=== PATIENT | female | born 1970 | race Caucasian/White ===

== ENCOUNTER 2018-11-22 16:38 | Emergency (ER) | payer SELFPAY ==
[2018-11-22 16:45] VITALS: BP 133/102
[2018-11-22] MEDS ORDERED: KETOROLAC 60 MG/2 ML VIAL IM ONE (16:50)
--- NOTE | 2018-11-22 16:52 | ER Report ---
History and Physical Time Seen By MD: 16:49 (JASSON MCDANIELS MD) HPI/ROS CHIEF COMPLAINT: Chronic low back pain swelling of her feet HISTORY OF PRESENT ILLNESS: 48 normal morbidly obese female traveling across country comes emergency Department today with complaint of swelling of both of her feet. 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 So they've been living in her car driving across country to [place] where they have associated cyst housing waiting for them a job. Patient states that she's had acute on chronic back discomfort she's had a long history of chronic herniated disc since and sitting in the truck longtime her back was got worse she denies any chest pain shortness of breath nausea vomiting diarrhea fever chills she is a smoker does have a nonproductive cough. Patient has no additiona l complaints REVIEW OF SYSTEMS: Respiratory: cough, no dyspnea. Cardiovascular: No chest pain, no palpitations. Gastrointestinal: No vomiting, no abdominal pain. Musculoskeletal: Swelling bilateral lower extremity chronic back pain Remainder of the 14 system rev: Yes (JASSON MCDANIELS MD) Home Meds Reported Medications Aspirin (ASPIR 81) 81 Mg Tablet.dr, 81 MG PO QDAY, TAB 11/22/18 Albuterol Sulfate 0.083% (ALBUTEROL SULFATE 0.083%) 2.5 Mg/3 Ml Vial.neb, 2.5 MG INH, INH 11/22/18 Fluticasone/Salmeterol (ADVAIR 100-50 DISKUS) 1 Each Disk.w.dev, 1 EACH IH 11/22/18 Reviewed Nurses Notes: Yes Old Medical Records Reviewed: Yes (JASSON MCDANIELS MD) Constitutional Vital Sign - Last 24 Hours 11/22/18 11/22/18 11/22/18 16:45 17:00 17:30 Pulse 87 87 86 Resp 20 B/P (MAP) 133/102 Pulse Ox 93 90 94 O2 Delivery Room Air (DANY CR MD) Physical Exam General Appearance: The patient is alert, has no immediate need for airway protection and no current signs of toxicity. [ ] Eyes: Pupils equal and round no injection. Respiratory: Chest is non tender, lungs are clear to auscultation. Cardiac: regular rate and rhythm [ ] Gastrointestinal: Abdomen is soft and non tender, no masses, bowel sounds normal. Musculoskeletal: Bilateral load extremity examination does show +1 to +2 pitting edema bilaterally right somewhat greater than left aeromask intact otherwise unremarkable Neck is supple and non tender. Extremities have full range of motion and are non tender. Skin: No rashes or lesions. [ ] DIFFERENTIAL DIAGNOSIS: After history and physical exam differential diagnosis was considered for DVT edema from morbid obesity daily chronic back pain (JASSON MCDANIELS MD) Medical Decision Making Data Points Result Diagram: 11/22/18 1658 11/22/18 1658 Laboratory Hematology Test 11/22/18 16:58 Red Blood Count 4.50 M/uL (4.17-5.56) Mean Corpuscular Volume 87.9 fL (80.0-96.0) Mean Corpuscular Hemoglobin 30.0 pg (26.0-33.0) Mean Corpuscular Hemoglobin Concent 34.2 g/dL (32.0-36.0) Red Cell Distribution Width 15.1 % (11.5-14.5) Mean Platelet Volume 8.5 fL (7.2-11.1) Neutrophils (%) (Auto) 69.2 % (39.4-72.5) Lymphocytes (%) (Auto) 19.5 % (17.6-49.6) Monocytes (%) (Auto) 7.1 % (4.1-12.4) Eosinophils (%) (Auto) 3.6 % (0.4-6.7) Basophils (%) (Auto) 0.6 % (0.3-1.4) Nucleated RBC Relative Count (auto) 0.1 /100WBC Neutrophils # (Auto) 7.7 K/uL (2.0-7.4) Lymphocytes # (Auto) 2.2 K/uL (1.3-3.6) Monocytes # (Auto) 0.8 K/uL (0.3-1.0) Eosinophils # (Auto) 0.4 K/uL (0.0-0.5) Basophils # (Auto) 0.1 K/uL (0.0-0.1) Nucleated RBC Absolute Count (auto) 0.01 K/uL Prothrombin Time 12.8 seconds (12.0-14.4) Prothromb Time International Ratio 0.96 Activated Partial Thromboplast Time 27 seconds (23-35) Sodium Level 141 mmol/L (137-145) Potassium Level 3.8 mmol/L (3.5-5.0) Chloride Level 105 mmol/L (98-107) Carbon Dioxide Level 30 mmol/L (22-31) Blood Urea Nitrogen 10 mg/dl (7-18) Creatinine 1.00 mg/dl (0.52-1.04) Glomerular Filtration Rate Calc 59.4 Random Glucose 95 mg/dl (75-110) Calcium Level 8.7 mg/dl (8.4-10.2) Total Bilirubin 0.4 mg/dl (0.2-1.3) Aspartate Amino Transf (AST/SGOT) 14 U/L (0-35) Alanine Aminotransferase (ALT/SGPT) 34 U/L (0-56) Alkaline Phosphatase 104 U/L (0-126) Total Protein 7.2 g/dl (6.3-8.2) Albumin 3.6 g/dl (3.5-5.0) Chemistry Test 11/22/18 16:58 White Blood Count 11.1 k/uL (4.5-11.0) Red Blood Count 4.50 M/uL (4.17-5.56) Hemoglobin 13.5 g/dL (12.0-16.0) Hematocrit 39.6 % (34.0-47.0) Mean Corpuscular Volume 87.9 fL (80.0-96.0) Mean Corpuscular Hemoglobin 30.0 pg (26.0-33.0) Mean Corpuscular Hemoglobin Concent 34.2 g/dL (32.0-36.0) Red Cell Distribution Width 15.1 % (11.5-14.5) Platelet Count 320 K/uL (150-450) Mean Platelet Volume 8.5 fL (7.2-11.1) Neutrophils (%) (Auto) 69.2 % (39.4-72.5) Lymphocytes (%) (Auto) 19.5 % (17.6-49.6) Monocytes (%) (Auto) 7.1 % (4.1-12.4) Eosinophils (%) (Auto) 3.6 % (0.4-6.7) Basophils (%) (Auto) 0.6 % (0.3-1.4) Nucleated RBC Relative Count (auto) 0.1 /100WBC Neutrophils # (Auto) 7.7 K/uL (2.0-7.4) Lymphocytes # (Auto) 2.2 K/uL (1.3-3.6) Monocytes # (Auto) 0.8 K/uL (0.3-1.0) Eosinophils # (Auto) 0.4 K/uL (0.0-0.5) Basophils # (Auto) 0.1 K/uL (0.0-0.1) Nucleated RBC Absolute Count (auto) 0.01 K/uL Prothrombin Time 12.8 seconds (12.0-14.4) Prothromb Time International Ratio 0.96 Activated Partial Thromboplast Time 27 seconds (23-35) Glomerular Filtration Rate Calc 59.4 Calcium Level 8.7 mg/dl (8.4-10.2) Total Bilirubin 0.4 mg/dl (0.2-1.3) Aspartate Amino Transf (AST/SGOT) 14 U/L (0-35) Alanine Aminotransferase (ALT/SGPT) 34 U/L (0-56) Alkaline Phosphatase 104 U/L (0-126) Total Protein 7.2 g/dl (6.3-8.2) Albumin 3.6 g/dl (3.5-5.0) Coagulation Test 11/22/18 16:58 Prothrombin Time 12.8 seconds Prothromb Time International Ratio 0.96 Activated Partial Thromboplast Time 27 seconds ([facility]) EKG/Imaging Imaging Examination: CHEST PA LAT Comparison: None. History: Cough. Findings: Cardiac and hilar contour size is normal. No consolidation, nodule, or peribronchial inflammation. No pneumothorax, edema, or effusion. Osseous structures are intact. IMPRESSION: No findings of acute cardiopulmonary disease. Report Dictated By: Sachin Rose MD at 11/22/2018 5:59 PM Bilateral lower extremity venous Doppler duplex ultrasound scan. HISTORY: Lower extremity edema. COMPARISON: None. A color flow Doppler duplex ultrasound examination with spectral analysis was performed on both lower extremities. The common femoral veins, superficial femoral veins, and popliteal veins are normal. These vessels compress and augment normally. The upper portions of the trifurcation veins are unremarkable. Portions of the deep veins of the calves are obscured. No intraluminal filling defects are identified to suggest acute thrombus in the deep venous system. Edema is present in the soft tissues of both lower extremities. A venous reflux study was not performed at this time. Note that Doppler ultrasound is somewhat insensitive below the knees. IMPRESSION: Bilateral lower extremity soft tissue edema. Otherwise negative for acute deep vein thrombosis. Report Dictated By: Ranjeet Kong MD at 11/22/2018 5:55 PM (DANY CR MD) ED Course/Re-evaluation ED Course Venous ultrasound negative. Chest x-ray negative. Decision to Disposition Date: Nov 22, 2018 Decision to Disposition Time: 18:30 (DANY CR MD) Depart Departure Latest Vital Signs Vital Signs Date Time Temp Pulse Resp B/P (MAP) Pulse Ox O2 Delivery O2 Flow Rate FiO2 11/22/18 17:30 86 94 11/22/18 16:45 20 133/102 Room Air (DANY CR MD) Impression: Primary Impression: Edema Condition: Improved Disposition: HOME OR SELF-CARE Patient Instructions: Edema,Peripheral Additional Instructions: No blood clots noted on evaluation today. Follow-up with primary care. Problem Qualifiers Primary Impression: Edema Edema type: unspecified Qualified Codes: R60.9 - Edema, unspecified JASSON MCDANIELS MD Nov 22, 2018 16:52 DANY CR MD Nov 22, 2018 18:16
[2018-11-22] MEDS ORDERED: ASPI-1471 PO (16:53)
[2018-11-22] MEDS ORDERED: ALBU2.5V36 INH (16:53)
[2018-11-22] MEDS ORDERED: FLUT1DIS27 IH (16:53)
[2018-11-22 17:13] LABS: PLATELET COUNT, AUTOMATED 320 K/uL (150-450)
[2018-11-22 17:15] LABS: INR 0.96
--- NOTE | 2018-11-22 18:01 | RADIOLOGY IMAGING REPORT ---
[place] [facility] [place] NAME: Rabia Dickey : 1970 MR: [id number] V: [id number] EXAM DATE: ORDERING PHYSICIAN: JASSON MCDANIELS TECHNOLOGIST: Location: [facility] [place] Patient: Rabia Dickey : 1970 Visit/Account:[id number] Date of Sevice: 11/22/2018 Bilateral lower extremity venous Doppler duplex ultrasound scan. HISTORY: Lower extremity edema. COMPARISON: None. A color flow Doppler duplex ultrasound examination with spectral analysis was performed on both lower extremities. The common femoral veins, superficial femoral veins, and popliteal veins are normal. Th cassie vessels compress and augment normally. The upper portions of the trifurcation veins are unremarka ble. Portions of the deep veins of the calves are obscured. No intraluminal filling defects are ident ified to suggest acute thrombus in the deep venous system. Edema is present in the soft tissues of both lower extremities. A venous reflux study was not performed at this time. Note that Doppler ultrasound is somewhat insensitive below the knees. IMPRESSION: Bilateral lower extremity soft tissue edema. Otherwise negative for acute deep vein thrombosis. Report Dictated By: Ranjeet Kong MD at 11/22/2018 5:55 PM Report E-Signed By: Ranjeet Kong MD at 11/22/2018 5:56 PM WSN:[id number]
--- NOTE | 2018-11-22 18:04 | RADIOLOGY IMAGING REPORT ---
[place] [facility] [place] Rabia Dic[place] : 1970 MR: [id number] V: [id number] EXAM DATE: ORDERING PHYSICIAN: JASSON MCDANIELS TECHNOLOGIST: Location: [facility] Patient: Rabia Dickey : 1970 Visit/Account:[id number] Date of Sevice: 11/22/2018 Examination: CHEST PA LAT Comparison: None. History: Cough. Findings: Cardiac and hilar contour size is normal. No consolidation, nodule, or peribronchial inflam mation. No pneumothorax, edema, or effusion. Osseous structures are intact. IMPRESSION: No findings of acute cardiopulmonary disease. Report Dictated By: Sachin Rose MD at 11/22/2018 5:59 PM Report E-Signed By: Sachin Rose MD at 11/22/2018 6:00 PM WSN:[id number]
== END 2018-11-22 18:21 | disposition home or self-care (01) ==
LOC: ER 16:38
DX: R60.0 Localized edema (principal)
CPT/HCPCS: 71046; 85025; 85610; 85730; 93970; 96372; 99284; J1885; 82040; 82247; 82310; 82374; 82435; 82565; 82947; 84075; 84132; 84155; 84295; 84450; 84460; 84520